=== PATIENT | female | born 1955 | race Two or more races ===

== ENCOUNTER 2021-12-31 08:33 | Outpatient (CLI) | payer OTHER | END 2021-12-31 08:35 | disposition home or self-care (01) | LOC: SONOGRAMA 08:33 | PROVIDERS: ATTEND Pathology Anatomic Pathology & Clinical Pathology | DX: E04.2 Nontoxic multinodular goiter (principal) ==

== ENCOUNTER 2023-04-21 08:06 | Outpatient (CLI) | payer OTHER | END 2023-04-21 08:08 | disposition home or self-care (01) | LOC: SONOGRAMA 08:06 | PROVIDERS: ATTEND Pathology Anatomic Pathology & Clinical Pathology | DX: D34 Benign neoplasm of thyroid gland (principal); E04.9 Nontoxic goiter, unspecified ==

== ENCOUNTER 2024-08-13 08:26 | Outpatient (CLI) | payer OTHER | END 2024-08-13 08:29 | disposition home or self-care (01) | LOC: SONOGRAMA 08:26 | PROVIDERS: ATTEND Pathology Anatomic Pathology & Clinical Pathology | DX: D34 Benign neoplasm of thyroid gland (principal); E07.89 Other specified disorders of thyroid; E04.2 Nontoxic multinodular goiter ==